=== PATIENT | female | born 1995 | race Caucasian/White ===

== ENCOUNTER → 2017-01-04 | Outpatient (CLI) | payer BC, OTHER | LOC: M LAB 10:19 | DX: R76.11 Nonspecific reaction to tuberculin skin test without active tuberculosis (principal) ==

== ENCOUNTER → 2017-12-01 | Outpatient (CLI) | payer OTHER | LOC: M RAD 13:02 | DX: N92.6 Irregular menstruation, unspecified (principal) | CPT/HCPCS: 76856 ==

== ENCOUNTER → 2017-12-03 | Outpatient (CLI) | payer OTHER ==
[2017-12-03 15:05] LABS: CONTROL LINE HCG INT CTR LINE PRESENT; HCG, SERUM QUALITATIVE NEGATIVE (NEGATIVE)
[2017-12-03 15:26] LABS: FREE THYROXINE INDEX 3.6 % (1.3-4.8); T UPTAKE 35 % (30-39); THYROXINE (T4) 10.4 UG/DL (4.5-12.0)
[2017-12-05 07:34] LABS: GLUCOSE, FASTING 78 MG/DL (70-105)
[2017-12-08 08:07] LABS: INSULIN FREE 2.9 uU/mL (.); INSULIN TOTAL2 2.9 uU/mL (.)
== END ==
LOC: M LAB 14:19
DX: N92.6 Irregular menstruation, unspecified (principal)
CPT/HCPCS: 82947

== ENCOUNTER → 2017-12-08 | Outpatient (CLI) | payer OTHER ==
[2017-12-08 13:02] LABS: FOLLICLE STIMULATING HORMONE 12.9 mIU/mL; LUTEINIZING HORMONE 4.3 mIU/mL
== END ==
LOC: M LAB 12:00
DX: N92.6 Irregular menstruation, unspecified (principal)
CPT/HCPCS: 83001

== ENCOUNTER → 2017-12-22 | Outpatient (CLI) | payer OTHER ==
[2017-12-22 14:53] LABS: T UPTAKE 37 % (30-39); THYROID STIMULATING HORMONE 0.284 uIU/ML (0.358-3.740)
== END ==
LOC: M LRY 10:28
DX: N92.6 Irregular menstruation, unspecified (principal)
CPT/HCPCS: 84443

== ENCOUNTER → 2017-12-23 | Outpatient (CLI) | payer OTHER | LOC: M RAD 09:00 | DX: N83.00 Follicular cyst of ovary, unspecified side (principal) | CPT/HCPCS: 76856 ==

== ENCOUNTER → 2017-12-23 | Outpatient (CLI) | payer OTHER | LOC: M RAD 08:57 | DX: R94.6 Abnormal results of thyroid function studies (principal) | CPT/HCPCS: 76536 ==

== ENCOUNTER → 2017-12-26 | Outpatient (CLI) | payer OTHER ==
[2017-12-26 14:19] LABS: ESTRADIOL 181.3 PG/ML
[2017-12-27 07:09] LABS: PROGESTERONE 28.2 NG/ML
== END ==
LOC: M LAB 12:11
DX: N92.6 Irregular menstruation, unspecified (principal)
CPT/HCPCS: 84144